=== PATIENT | male | born 1975 | race Two or more races ===

== ENCOUNTER 2019-07-18 13:23 | Emergency (ER) | payer MEDICAID ==
[~2019-07-18] VITALS: Ht 175.3 cm; Wt 87.0 kg
[2019-07-18 13:28] VITALS: BP 111/63
[2019-07-18] MEDS ORDERED: ACETAMINOPHEN 500MG TABLET PO ONE (14:45)
[2019-07-18] MEDS ORDERED: LIDOCAINE HCL 1% 20ML VIAL (Pyxis) INJ INFIL ONE (14:45)
[2019-07-18] MEDS ORDERED: TETANUS, DIPHTHERIA, PERTUSSIS VAC/PF 0.5ML (>7YR OLD) IM ONE (14:45)
== END 2019-07-18 17:04 | disposition home or self-care (01) ==
LOC: ER 13:23
DX: S01.511A Laceration without foreign body of lip, initial encounter (principal); S01.412A Laceration without foreign body of left cheek and temporomandibular area, initial encounter; E78.00 Pure hypercholesterolemia, unspecified; V29.88XA Motorcycle rider (driver) (passenger) injured in other specified transport accidents, initial encounter; Y93.89 Activity, other specified; Y92.89 Other specified places as the place of occurrence of the external cause; Y99.8 Other external cause status
CPT/HCPCS: 12015; 90471; 90715; 99284; J3490

== ENCOUNTER 2019-07-20 11:04 | Emergency (ER) | payer MEDICAID ==
[~2019-07-20] VITALS: Ht 177.8 cm; Wt 88.0 kg
[2019-07-20 11:26] VITALS: BP 138/81
== END 2019-07-20 13:01 | disposition home or self-care (01) ==
LOC: ER 11:04
DX: Z48.00 Encounter for change or removal of nonsurgical wound dressing (principal)
CPT/HCPCS: 99281

== ENCOUNTER 2019-07-26 09:58 | Emergency (ER) | payer MEDICAID ==
[~2019-07-26] VITALS: Ht 182.9 cm; Wt 88.0 kg
[2019-07-26 10:25] VITALS: BP 134/84
== END 2019-07-26 10:44 | disposition home or self-care (01) ==
LOC: ER 09:58
DX: Z48.02 Encounter for removal of sutures (principal); R03.0 Elevated blood-pressure reading, without diagnosis of hypertension
CPT/HCPCS: 99281